=== PATIENT | female | born 1975 | race Caucasian/White ===

== ENCOUNTER → 2016-08-16 | Outpatient (CLI) | payer OTHER ==
[~2016-08-16] MED LIST: ALBUTEROL17 GM INH; ANIMAL SHAPES1 EAC2 PO; AUGMENTIN875 MG DOB; BACLOFEN10 MG PO; BACTRIM DS TABL1 TA1; BACTRIM DS TABL1 TA1 PO; BACTRIM DS TABL1 TA2 PO; CELEXA; DICLOFENAC; DITROPAN5 MG PO; HYCODAN60 ML 5MG/ PO; LAMICTAL25 MG PO; NO MEDICATIONS; OMEPRAZOLE20 M2 PO; PRAVACHOL20 MG PO; PRILOSEC20 M1 PO; PYRIDIUM100 MG PO; QUESTRAN LIGH4 G/PKT PO; SEROQUEL PO; SYMBICORT80 INH; ZYRTEC-D TABLE1 EACH PO; [UNRECOGNIZED DRUG - OTHER]
--- NOTE | ~2016-08-16 | CR63 ---
[facility]. [facility] A Service of [facility] & [facility] RADIOLOGY TEXT RESULTS PATIENT: CARTER LOPEZ LOCATION: [facility] : 75 UNIT #: [id number] AGE: [address]: Christine Stokes MD SEX: F ORDER DR: [id number] [place] [id number] O MR#: [id number] Acc #: [id number] NAME: CARTER LOPEZ : 1975 SEX: F STUDY DATE/TIME: 08/16/2016 14:15 UNIT: [facility]: STUDY DESCRIPTION: CR Chest 2 View Attending Physician: Christine Stokes M.D. Referring Physician: Christine Stokes M.D. Ordering Physician: Christine Stokes M.D. Primary Care Physician: Kvng Stokes M.D. MEDICAL IMAGING REPORT This report is preliminary unless electronic signature is present. EXAM Two-view chest, 08/16/2016. HISTORY [id number]-old female with cough for 1 week. COPD. Shortness of breath for 1 week. Chest pain. COMPARISON Chest, 07/09/2016. CT chest, 07/09/2016. FINDINGS Two views of the chest demonstrate clear lungs. No pleural effusion or pneumothorax. Heart size and mediastinum are normal. Pulmonary vasculature normal. Thoracolumbar spinal fusion rods are again noted. IMPRESSION No acute cardiopulmonary findings. Dictated by... Tyson Wright M.D. THIS IS AN ELECTRONICALLY VERIFIED REPORT Tyson Wright M.D. at 08/18/2016 1:32 PM MADELYN/shade TD: 08/16/2016 22:04 JOB #: [id number] MEDICAL IMAGING REPORT Page 1 of 1
== END | disposition home or self-care (01) ==
LOC: SRAD 14:10
DX: R05 Cough (principal); F17.200 Nicotine dependence, unspecified, uncomplicated
CPT/HCPCS: 71020